=== PATIENT | female | born 1995 | race Caucasian/White ===

== ENCOUNTER → 2017-07-07 | Outpatient (CLI) | payer BC ==
[~2017-07-07] MED LIST: ACYCLOVIR400 MG PO; BACTRIM DS 8001 TA1 PO; PREDNICOT20 MG PO; ZOFRAN ODT4 MG SL
[2017-07-07 15:01] LABS: BASO # 0.1 10*3/uL (0.0-0.1); BASO % 0.8 % (0.0-1.0); EOS # 0.5 10*3/uL (0.0-0.4); EOS % 6.6 % (1.0-4.0); HEMATOCRIT 33.6 % (37.0-47.0); HEMOGLOBIN 10.7 g/dl (12.0-16.0); LYMPH # 1.6 10*3/uL (1.3-4.4); LYMPH % 21.3 % (27.0-41.0); MEAN CELL VOLUME 89.4 fl (81.0-99.0); MEAN CORPUSCULAR HGB 28.5 pg (27.0-31.0); MEAN CORPUSCULAR HGB CONC 31.8 g/dl (33.0-37.0); MEAN PLATELET VOLUME 9.3 fl (9.6-12.3); MONO # 0.5 10*3/uL (0.1-1.0); NEUT # 4.9 10*3/uL (2.3-7.9); NEUT % 64.5 % (47.0-73.0); PLATELET COUNT AUTOMATED 277 10*3/uL (130-400); RED BLOOD COUNT 3.76 10*6/uL (4.10-5.10); RED CELL DISTRI WIDTH 14.6 % (0-14.5); WHITE BLOOD COUNT 7.6 10*3/uL (4.8-10.8)
[2017-07-07 15:08] LABS: ACT PARTIAL THROMBO TIME 25.2 SECONDS (20.8-31.5)
[2017-07-07 15:14] LABS: ALBUMIN 3.7 gm/dl (3.1-4.5); ALKALINE PHOSPHATASE 65 U/L (45-117); BUN 11 mg/dl (7-24); CHLORIDE 109 mmol/L (98-107); CHOLESTEROL 130 mg/dL (<200); CREATININE 0.81 mg/dL (0.55-1.02); HDL CHOLESTEROL 51 mg/dl (40-60); LDL CHOLESTEROL 71 mg/dL (9-159); SGOT/AST 11 IU/L (3-35); SGPT/ALT 12 U/L (12-78); SODIUM 142 mmol/L (136-145); TOTAL PROTEIN 7.8 gm/dL (6.4-8.2); TRIGLYCERIDES 42 mg/dl (<150); VLDL CHOLESTEROL 8 mg/dL (6-40)
[2017-07-07 15:22] LABS: B-hCG (QUALITATIVE) NEGATIVE (NEGATIVE); THYROID STIM HORMONE (HS) 0.818 uIU/ml (0.358-4.75)
== END | disposition home or self-care (01) ==
LOC: LAB 14:43
PROVIDERS: Pediatrics
DX: N94.6 Dysmenorrhea, unspecified (principal); R79.89 Other specified abnormal findings of blood chemistry

== ENCOUNTER 2023-03-15 10:42 | Emergency (ER) | payer SELFPAY ==
[~2023-03-15] VITALS: Wt 86.2 kg
[2023-03-15 11:00] VITALS: BP 114/79
[2023-03-15] MEDS ORDERED: VIBRAMYCIN100 MG PO (12:01)
== END 2023-03-15 12:07 | disposition home or self-care (01) ==
LOC: ED 10:42
DX: A18.01 Tuberculosis of spine (principal)

== ENCOUNTER 2024-10-18 17:49 | Emergency (ER) | payer SELFPAY ==
[~2024-10-18] VITALS: Ht 165.1 cm; Wt 86.2 kg
[~2024-10-18 17:49] MED LIST changes: +VIBRAMYCIN100 MG PO
[2024-10-18 18:13] VITALS: BP 124/84
[2024-10-18] MEDS ORDERED: Sulfamethoxazole/Trimethopri 1 TAB TAB PO ONE (18:25)
[2024-10-18] MEDS ORDERED: SEPTDS PO (18:26)
== END 2024-10-18 18:38 | disposition home or self-care (01) ==
LOC: ED 17:49
DX: L05.01 Pilonidal cyst with abscess (principal); Z79.2 Long term (current) use of antibiotics

== ENCOUNTER 2024-10-20 16:46 | Emergency (ER) | payer SELFPAY ==
[~2024-10-20] VITALS: Ht 165.1 cm; Wt 86.2 kg
[~2024-10-20 16:46] MED LIST changes: +SEPTDS PO
[2024-10-20 17:13] VITALS: BP 155/113
== END 2024-10-20 18:46 | disposition home or self-care (01) ==
LOC: ED 16:46
DX: L05.01 Pilonidal cyst with abscess (principal)

== ENCOUNTER 2024-12-21 14:00 | Emergency (ER) | payer SELFPAY ==
[~2024-12-21] VITALS: Ht 165.1 cm; Wt 86.2 kg
[2024-12-21] MEDS ORDERED: SODIUM CHLORIDE 0.9% 1,000 ML IV ONE (14:25)
[2024-12-21] MEDS ORDERED: LORazepam 1 MG TAB PO ONE (14:40)
[2024-12-21 14:55] LABS: BASO # 0.0 10*3/uL (0.0-0.1); BASO % 0.4 % (0.0-1.0); EOS # 0.1 10*3/uL (0.0-0.4); EOS % 1.1 % (1.0-4.0); MEAN CELL VOLUME 73.9 fl (81.0-99.0); MEAN CORPUSCULAR HGB 21.2 pg (27.0-31.0); MEAN PLATELET VOLUME 8.7 fl (9.6-12.3); MONO # 0.7 10*3/uL (0.1-1.0); MONO % 6.1 % (3.0-9.0); NEUT # 8.2 10*3/uL (2.3-7.9); NEUT % 73.8 % (47.0-73.0); NUCLEATED RED BLOOD CELL 0.0 % (0.0-0.0); NUCLEATED RED BLOOD CELL 0.0 10*3/uL (0.0-0.0); PLATELET COUNT AUTOMATED 508 10*3/uL (130-400); RED CELL DISTRI WIDTH 17.9 % (0-14.5)
[2024-12-21 15:13] LABS: BUN 7 mg/dl (9-23)
[2024-12-21 16:08] VITALS: BP 129/81
[2024-12-21 16:33] LABS: BILIRUBIN Negative (Negative); BLOOD 3+ (Negative); CLARITY Clear (Clear); COLOR Orange (Yellow); KETONE 1+ (Negative); LEUKO ESTERASE 1+ (Negative); NITRITE Negative (Negative); PH 5.5 (4.5-8.0); SPECIFIC GRAVITY 1.020 (1.001-1.030); UROBILINOGEN 0.2 E.U./dl (0.0-1.0)
[2024-12-21 16:34] LABS: RBC TNTC rbc/hpf (0-2)
[2024-12-21] MEDS ORDERED: VIBRAMYCIN100 MG PO (16:57)
== END 2024-12-21 17:19 | disposition home or self-care (01) ==
LOC: ED 14:00
PROVIDERS: Nurse Practitioner Family
DX: L72.0 Epidermal cyst (principal); D50.9 Iron deficiency anemia, unspecified; F41.1 Generalized anxiety disorder

== ENCOUNTER 2025-01-06 23:01 | Emergency (ER) | payer SELFPAY ==
[2025-01-06] MEDS ORDERED: Acetaminophen/Hydrocodone HP 10/325 PO ONE (23:15)
[2025-01-06] MEDS ORDERED: metroNIDAZOLE 500 MG TAB PO ONE (23:15)
[2025-01-06] MEDS ORDERED: CEPHALEXIN 500 MG CAP PO ONE (23:15)
[2025-01-06] MEDS ORDERED: FLUCONAZOLE100 MG PO (23:19)
[2025-01-06] MEDS ORDERED: CEPHALEXIN500 M1 PO (23:19)
[2025-01-06] MEDS ORDERED: METRONIDAZOLE500 M1 PO (23:19)
[2025-01-06 23:24] VITALS: BP 157/82
[2025-01-06] MEDS ORDERED: HYDROCODONE-AC1 EAC1 PO (23:24)
== END 2025-01-06 23:35 | disposition home or self-care (01) ==
LOC: ED 23:01
DX: L05.91 Pilonidal cyst without abscess (principal)

== ENCOUNTER 2025-01-07 13:47 | Emergency (ER) | payer SELFPAY ==
[~2025-01-07 13:47] MED LIST changes: +CEPHALEXIN500 M1 PO; +FLUCONAZOLE100 MG PO; +HYDROCODONE-AC1 EAC1 PO; +METRONIDAZOLE500 M1 PO
[2025-02-10] MEDS ORDERED: HYDROCODONE-AC1 EAC1 PO (10:37)
== END 2025-01-07 14:16 | disposition left against medical advice (07) ==
LOC: ED 13:47
DX: L02.91 Cutaneous abscess, unspecified (principal); Z53.21 Procedure and treatment not carried out due to patient leaving prior to being seen by health care provider

== ENCOUNTER 2025-01-07 17:14 | Emergency (ER) | payer SELFPAY ==
[~2025-01-07] VITALS: Wt 89.8 kg
[2025-01-07 17:29] VITALS: BP 121/108
== END 2025-01-07 20:56 | disposition home or self-care (01) ==
LOC: ED 17:14
DX: L05.01 Pilonidal cyst with abscess (principal); Z79.899 Other long term (current) drug therapy

== ENCOUNTER → 2025-02-10 | Day surgery (SDC) | payer SELFPAY ==
[~2025-02-10] VITALS: Ht 165.1 cm; Wt 90.7 kg
[~2025-02-10] MED LIST changes: +ACETAMINOPHEN 100 ML IV ONE; +ALBUTEROL 8 GM INHALER INH ONE; +Dexamethasone Sodium Phospha 4 MG/ML VIAL IV ONE; +Lactated Ringer's Solution 1,000 ML IV ONE; +Lactated Ringer's Solution 1,000 ML IV SCH; +Lidocaine Hydrochloride 30 ML VIAL ONE; +Lidocaine Hydrochloride 5 ML VIAL IV ONE; +Midazolam Hydrochloride 2 MG/2 ML VIAL IV ONE; +Ondansetron Hydrochloride 4 MG/2 ML VIAL IV ONE; +PROPOFOL 200 MG/20 ML VIAL IV ONE; +ROCURONIUM BROMIDE 50 MG/5 ML SYRINGE IV ONE; +SEVOFLURANE 250 ML BOT INH ONE; +SUGAMMADEX SODIUM 200 MG/2 ML VIAL IV ONE; +ceFAZolin sodium 2GM/20ML IV ONE; +ceFAZolin sodium/sodium chlor 20 ML IV ONE
[2025-02-10 08:40] VITALS: BP 127/85
[2025-02-10 10:54] VITALS: BP 133/68
[2025-02-10 11:09] VITALS: BP 144/90
[2025-02-10 11:24] VITALS: BP 129/87
[2025-02-10 11:39] VITALS: BP 141/87
[2025-02-10 11:52] VITALS: BP 124/85
== END | disposition home or self-care (01) ==
LOC: SDC 00:53
PROVIDERS: ATTEND Surgery
DX: L05.91 Pilonidal cyst without abscess (principal); F41.9 Anxiety disorder, unspecified; F12.90 Cannabis use, unspecified, uncomplicated; Z91.018 Allergy to other foods